=== PATIENT | female | born 1955 | race African-American/Black ===

== ENCOUNTER 2019-01-06 13:23 | Emergency (ER) | payer OTHER | END 2019-01-06 14:04 | disposition home or self-care (01) | LOC: BURERS 13:23 | DX: M79.10 Myalgia, unspecified site (principal); I10 Essential (primary) hypertension; E03.9 Hypothyroidism, unspecified; F41.9 Anxiety disorder, unspecified; F17.210 Nicotine dependence, cigarettes, uncomplicated; V89.2XXA Person injured in unspecified motor-vehicle accident, traffic, initial encounter | CPT/HCPCS: 99281 ==

== ENCOUNTER 2021-03-21 02:53 | Emergency (ER) | payer MEDICARE, BC ==
[2021-03-21] MEDS ORDERED: cefTRIAXone\\ROCEPHIN 1 GM VIAL ONE (04:56)
[2021-03-21] MEDS ORDERED: Promethazine HCl 25 MG/ML VIAL ONE ×2 (04:56→17:48)
[2021-03-21] MEDS ORDERED: Lidocaine 1% PF 5 ML VIAL ONE (04:57)
[2021-03-21] MEDS ORDERED: Morphine 4 MG/ML VIAL ONE ×4 (05:15→17:38)
[2021-03-21 06:01] LABS: #Basophils 0.1 thou/uL (0.0-0.2); #Lymphocytes 2.7 thou/uL (1.20-3.40); #Monocytes 0.4 thou/uL (0.11-0.59); #Neutrophils 4.1 thou/uL (1.40-6.50); %Basophils 1.2 % (0.0-1.0); %Eosinophils 0.3 % (0.0-10.0); %Lymphocytes 37.1 % (21.0-51.0); %Neutrophils 56.4 % (42.0-75.0); Hemoglobin 15.9 g/dL (12.0-16.0); Mean Corpuscular HGB CONC 32.4 g/dL (32.0-36.0); Mean Corpuscular Hemoglobin 29.4 pg (27.0-31.0); Mean Corpuscular Volume 90.6 fL (78.0-98.0); Mean Platelet Volume 6.9 fL (7.4-10.4); Platelet Count 335 thou/uL (130-400); RBC Distribution Width 15.7 % (11.5-14.5); Red Blood Cell (RBC) Count 5.42 mill/uL (4.20-5.40); White Blood Cell (WBC) Count 7.2 thou/uL (4.8-10.8)
[2021-03-21] MEDS ORDERED: metroNIDAZOLE 500 MG/100 ML BAG ONE (06:08)
[2021-03-21 06:18] LABS: ALT (SGPT) 28 U/L (8-55); Albumin 3.9 g/dL (3.4-4.8); Alkaline Phosphatase 110 U/L (40-110); Anion Gap 18 mmol/L (10-20); BUN (Urea Nitrogen) 64 mg/dL (9.8-20.1); Bilirubin, Total 0.5 mg/dL (0.2-1.2); Calc. Creatinine Clearance 0 mL/min (70-130); Calcium 9.1 mg/dL (7.8-10.44); Carbon Dioxide 19 mmol/L (23-31); Chloride 101 mmol/L (98-107); Glucose 84 mg/dL (80-115); Lipase 12 U/L (8-78); Potassium 4.5 mmol/L (3.5-5.1); Protein, Total 7.9 g/dL (5.8-8.1); Sodium 133 mmol/L (136-145)
[2021-03-21 06:19] LABS: AST (SGOT) 21 U/L (5-34)
[2021-03-21] MEDS ORDERED: Benzocaine 20% Spray 60 ML CAN ONE (07:43)
[2021-03-21] MEDS ORDERED: Ondansetron PF 4 MG/2 ML Vial ONE ×2 (09:23→15:35)
[2021-03-21] MEDS ORDERED: Lorazepam 2 MG/ML VIAL ONE (10:28)
[2021-03-21 11:26] LABS: Bilirubin Negative (Negative); Blood, Urine Negative (Negative); Clarity Clear (Clear); Glucose, Urine (Dipstick) Negative (Negative); Ketone, Urine Trace mg/dL (Negative); Leukocyte Negative (Negative); Nitrite Negative (Negative); Protein, Urine (Dipstick) Negative (Neg-Trace); Urobilinogen 0.2 mg/dL (Less than 2); pH, Urine 5.5 (5.0-9.0)
[2021-03-21] MEDS ORDERED: Cepastat Lozenges 1 LOZ PO PRN (15:42)
[2021-03-21 21:05] LABS: SARS-CoV-2 PCR by NAA Not Detected (NotDetected)
== END 2021-03-21 18:58 | disposition short-term general hospital (02) ==
LOC: BURERS 02:53
DX: T81.49XA Infection following a procedure, other surgical site, initial encounter (principal); K56.600 Partial intestinal obstruction, unspecified as to cause; I10 Essential (primary) hypertension; E03.9 Hypothyroidism, unspecified; F17.210 Nicotine dependence, cigarettes, uncomplicated; Z20.822 Contact with and (suspected) exposure to COVID-19
CPT/HCPCS: 51701; 74018; 74176; 80053; 81003; 83605; 83690; 85025; 87070; 87205; 96365; 96367; 96372; 96375; 96376; J0696; J2060; J2270; J2405; J2550; J3370; U0003; U0005